=== PATIENT | female | born 1985 | race Caucasian/White ===

== ENCOUNTER 2019-03-13 07:47 | Emergency (ER) | payer OTHER ==
[~2019-03-13] VITALS: Ht 165.1 cm; Wt 70.3 kg
[2019-03-13 08:00] VITALS: BP 120/86
== END 2019-03-13 09:42 | disposition home or self-care (01) ==
LOC: ER 07:50
DX: F41.1 Generalized anxiety disorder (principal); F17.210 Nicotine dependence, cigarettes, uncomplicated
CPT/HCPCS: 71045; 93005